=== PATIENT | female | born 1970 | race American Indian/Alaskan Native ===

== ENCOUNTER 2021-02-15 20:13 | Emergency (ER) | payer OTHER ==
[2021-02-15] MEDS ORDERED: SODIUM CHLORIDE 0.9% 1000 ML 0 ML ONE (20:24)
[2021-02-15] MEDS ORDERED: ONDANSETRON 4 MG/2 ML INJ ONE (20:24)
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
[2021-02-15 22:11] VITALS: BP 191/87
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
[2021-02-15] MEDS ORDERED: TETANUS,DIPH,PERTUSS(ACELL) VACCINE 0.5 ML SYRINGE IM ONE (22:45)
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
== END 2021-02-15 23:40 | disposition home or self-care (01) ==
LOC: ED 20:13
DX: M79.631 Pain in right forearm (principal); M54.9 Dorsalgia, unspecified; R51.9 Headache, unspecified; I10 Essential (primary) hypertension; Z79.899 Other long term (current) drug therapy; Z91.013 Allergy to seafood; Z88.2 Allergy status to sulfonamides; W22.10XA Striking against or struck by unspecified automobile airbag, initial encounter; Y92.410 Unspecified street and highway as the place of occurrence of the external cause; Y93.89 Activity, other specified; Y99.8 Other external cause status
CPT/HCPCS: 70450; 71046; 72070; 72100; 72125; 73090; 90471; 90715; 99284; J2405; J7030